=== PATIENT | female | born 1995 | race Caucasian/White ===

== ENCOUNTER 2017-07-10 11:12 | Emergency (ER) | payer OTHER ==
[~2017-07-10] VITALS: Ht 162.6 cm; Wt 50.8 kg
[2017-07-10 11:29] VITALS: BP 113/69
== END 2017-07-10 14:39 | disposition home or self-care (01) ==
LOC: ER 11:12
DX: S93.602A Unspecified sprain of left foot, initial encounter (principal); W19.XXXA Unspecified fall, initial encounter; Y93.89 Activity, other specified; Y99.8 Other external cause status; Y92.89 Other specified places as the place of occurrence of the external cause
CPT/HCPCS: 73630

== ENCOUNTER 2018-06-03 01:10 | Emergency (ER) | payer MEDICAID ==
[~2018-06-03] VITALS: Ht 170.2 cm; Wt 77.1 kg
[2018-06-03 01:23] VITALS: BP 134/82
== END 2018-06-03 05:49 | disposition home or self-care (01) ==
LOC: EDBD 01:10 → EDUNIT# 01:10 → ER 01:20
DX: S33.5XXA Sprain of ligaments of lumbar spine, initial encounter (principal); S69.81XA Other specified injuries of right wrist, hand and finger(s), initial encounter; V47.5XXA Car driver injured in collision with fixed or stationary object in traffic accident, initial encounter; Y93.89 Activity, other specified; Y99.8 Other external cause status; Y92.89 Other specified places as the place of occurrence of the external cause
CPT/HCPCS: 72070; 72100; 73100